=== PATIENT | male | born 1975 | race Two or more races ===

== ENCOUNTER 2018-07-30 12:13 | Outpatient (CLI) | payer SELFPAY | END 2018-07-30 23:59 | disposition home or self-care (01) | LOC: WOU 12:13 | PROVIDERS: ATTEND Surgery | DX: L89.213 Pressure ulcer of right hip, stage 3 (principal); G82.20 Paraplegia, unspecified; Z72.0 Tobacco use | CPT/HCPCS: 11042; A6402; Z7610 ==

== ENCOUNTER 2019-10-26 14:30 | Outpatient (CLI) | payer BC | END 2019-10-26 23:59 | disposition home or self-care (01) | LOC: WOU 14:30 | PROVIDERS: ATTEND Surgery | DX: L89.214 Pressure ulcer of right hip, stage 4 (principal); L89.224 Pressure ulcer of left hip, stage 4; F32.9 Major depressive disorder, single episode, unspecified; F41.9 Anxiety disorder, unspecified; K21.9 Gastro-esophageal reflux disease without esophagitis; G82.20 Paraplegia, unspecified; F17.200 Nicotine dependence, unspecified, uncomplicated; Z79.899 Other long term (current) drug therapy | CPT/HCPCS: 11043; A6407 ==

== ENCOUNTER 2019-10-29 12:30 | Outpatient (CLI) | payer BC | END 2019-10-29 23:59 | disposition home health service (06) | LOC: WOU 12:30 | PROVIDERS: ATTEND Surgery | DX: L89.214 Pressure ulcer of right hip, stage 4 (principal); L89.224 Pressure ulcer of left hip, stage 4; G82.20 Paraplegia, unspecified; F17.200 Nicotine dependence, unspecified, uncomplicated; N31.9 Neuromuscular dysfunction of bladder, unspecified; K21.9 Gastro-esophageal reflux disease without esophagitis | CPT/HCPCS: 11043; 87070-TC; 87075-TC ==

== ENCOUNTER 2019-11-01 08:40 | Outpatient (CLI) | payer BC | END 2019-11-01 23:59 | disposition home health service (06) | LOC: WOU 08:40 | PROVIDERS: ATTEND Surgery | DX: L89.214 Pressure ulcer of right hip, stage 4 (principal); L89.224 Pressure ulcer of left hip, stage 4; F17.200 Nicotine dependence, unspecified, uncomplicated; F41.9 Anxiety disorder, unspecified; F32.9 Major depressive disorder, single episode, unspecified; K21.9 Gastro-esophageal reflux disease without esophagitis; Z79.899 Other long term (current) drug therapy | CPT/HCPCS: 11043 ==

== ENCOUNTER 2019-11-08 09:50 | Outpatient (CLI) | payer BC ==
[2019-11-08 11:17] LABS: ALBUMIN 2.7 g/dL (3.4-5.0)
[2019-11-08 11:24] LABS: PREALBUMIN 18.3 MG/DL (18.0-35.7)
== END 2019-11-08 23:59 | disposition home health service (06) ==
LOC: WOU 09:50
PROVIDERS: ATTEND Surgery
DX: L89.214 Pressure ulcer of right hip, stage 4 (principal); L89.224 Pressure ulcer of left hip, stage 4; F41.9 Anxiety disorder, unspecified; F32.9 Major depressive disorder, single episode, unspecified; K21.9 Gastro-esophageal reflux disease without esophagitis; F17.200 Nicotine dependence, unspecified, uncomplicated; Z79.899 Other long term (current) drug therapy
CPT/HCPCS: 11043; 36415; 82040; 84134; A6407

== ENCOUNTER 2019-11-25 10:45 | Outpatient (CLI) | payer BC | END 2019-11-25 23:59 | disposition home health service (06) | LOC: WOU 10:45 | PROVIDERS: ATTEND Surgery | DX: L89.224 Pressure ulcer of left hip, stage 4 (principal); L89.214 Pressure ulcer of right hip, stage 4; F41.9 Anxiety disorder, unspecified; F32.9 Major depressive disorder, single episode, unspecified; K21.9 Gastro-esophageal reflux disease without esophagitis; F17.200 Nicotine dependence, unspecified, uncomplicated; G82.20 Paraplegia, unspecified; Z79.899 Other long term (current) drug therapy | CPT/HCPCS: 11043; A6407 ==

== ENCOUNTER 2019-12-09 10:00 | Outpatient (CLI) | payer BC | END 2019-12-09 23:59 | disposition home health service (06) | LOC: WOU 10:00 | PROVIDERS: ATTEND Surgery | DX: L89.224 Pressure ulcer of left hip, stage 4 (principal); L89.214 Pressure ulcer of right hip, stage 4; F17.200 Nicotine dependence, unspecified, uncomplicated; K21.9 Gastro-esophageal reflux disease without esophagitis; F32.9 Major depressive disorder, single episode, unspecified; F41.9 Anxiety disorder, unspecified; Z79.899 Other long term (current) drug therapy | CPT/HCPCS: 11043; A6407 ==

== ENCOUNTER 2019-12-30 12:30 | Outpatient (CLI) | payer BC | END 2019-12-30 23:59 | disposition home health service (06) | LOC: WOU 12:30 | PROVIDERS: ATTEND Surgery | DX: L89.224 Pressure ulcer of left hip, stage 4 (principal); L89.214 Pressure ulcer of right hip, stage 4; F17.200 Nicotine dependence, unspecified, uncomplicated; F32.9 Major depressive disorder, single episode, unspecified; F41.9 Anxiety disorder, unspecified; K21.9 Gastro-esophageal reflux disease without esophagitis; Z79.899 Other long term (current) drug therapy | CPT/HCPCS: 11043; A6407 ==

== ENCOUNTER 2020-01-06 13:30 | Outpatient (CLI) | payer BC | END 2020-01-06 23:59 | disposition home health service (06) | LOC: WOU 13:30 | PROVIDERS: ATTEND Surgery | DX: L89.224 Pressure ulcer of left hip, stage 4 (principal); L89.214 Pressure ulcer of right hip, stage 4; F17.200 Nicotine dependence, unspecified, uncomplicated; K21.9 Gastro-esophageal reflux disease without esophagitis; F41.9 Anxiety disorder, unspecified; F32.9 Major depressive disorder, single episode, unspecified | CPT/HCPCS: 11043; A6407 ==

== ENCOUNTER 2020-01-13 13:00 | Outpatient (CLI) | payer BC | END 2020-01-13 23:59 | disposition home health service (06) | LOC: WOU 13:00 | PROVIDERS: ATTEND Surgery | DX: L89.224 Pressure ulcer of left hip, stage 4 (principal); L89.214 Pressure ulcer of right hip, stage 4; F17.200 Nicotine dependence, unspecified, uncomplicated; F41.9 Anxiety disorder, unspecified; F32.9 Major depressive disorder, single episode, unspecified; Z79.899 Other long term (current) drug therapy | CPT/HCPCS: 11043; A6407 ==

== ENCOUNTER 2020-01-20 14:40 | Outpatient (CLI) | payer BC | END 2020-01-20 23:59 | disposition home health service (06) | LOC: WOU 14:40 | PROVIDERS: ATTEND Surgery | DX: L89.224 Pressure ulcer of left hip, stage 4 (principal); L89.214 Pressure ulcer of right hip, stage 4; F17.200 Nicotine dependence, unspecified, uncomplicated; F32.9 Major depressive disorder, single episode, unspecified; F41.9 Anxiety disorder, unspecified; K21.9 Gastro-esophageal reflux disease without esophagitis | CPT/HCPCS: 11043; 11046; J3490 ==

== ENCOUNTER 2020-01-24 11:05 | Outpatient (CLI) | payer BC | END 2020-01-24 23:59 | disposition home health service (06) | LOC: WOU 11:05 | PROVIDERS: ATTEND Surgery | DX: L89.224 Pressure ulcer of left hip, stage 4 (principal); L89.214 Pressure ulcer of right hip, stage 4; K21.9 Gastro-esophageal reflux disease without esophagitis; F32.9 Major depressive disorder, single episode, unspecified; F41.9 Anxiety disorder, unspecified; F17.200 Nicotine dependence, unspecified, uncomplicated | CPT/HCPCS: 11043 ==

== ENCOUNTER 2020-02-03 13:10 | Outpatient (CLI) | payer BC | END 2020-02-03 23:59 | disposition home health service (06) | LOC: WOU 13:10 | PROVIDERS: ATTEND Surgery | DX: L89.224 Pressure ulcer of left hip, stage 4 (principal); L89.214 Pressure ulcer of right hip, stage 4; F17.200 Nicotine dependence, unspecified, uncomplicated; F32.9 Major depressive disorder, single episode, unspecified; F41.9 Anxiety disorder, unspecified; K21.9 Gastro-esophageal reflux disease without esophagitis; G82.20 Paraplegia, unspecified | CPT/HCPCS: 11043; 97605-TC ==

== ENCOUNTER 2020-02-07 11:35 | Outpatient (CLI) | payer BC | END 2020-02-07 23:59 | disposition home health service (06) | LOC: WOU 11:35 | PROVIDERS: ATTEND Surgery | DX: L89.224 Pressure ulcer of left hip, stage 4 (principal); L89.214 Pressure ulcer of right hip, stage 4; F17.200 Nicotine dependence, unspecified, uncomplicated; F32.9 Major depressive disorder, single episode, unspecified; F41.9 Anxiety disorder, unspecified; K21.9 Gastro-esophageal reflux disease without esophagitis; Z79.899 Other long term (current) drug therapy | CPT/HCPCS: 11043; 97605-TC ==

== ENCOUNTER 2020-02-10 13:10 | Outpatient (CLI) | payer BC | END 2020-02-10 23:59 | disposition home health service (06) | LOC: WOU 13:10 | PROVIDERS: ATTEND Surgery | DX: L89.224 Pressure ulcer of left hip, stage 4 (principal); L89.214 Pressure ulcer of right hip, stage 4; F17.200 Nicotine dependence, unspecified, uncomplicated; F32.9 Major depressive disorder, single episode, unspecified; F41.9 Anxiety disorder, unspecified; K21.9 Gastro-esophageal reflux disease without esophagitis | CPT/HCPCS: 11043; 97605-TC ==

== ENCOUNTER 2020-02-14 11:30 | Outpatient (CLI) | payer BC | END 2020-02-14 23:59 | disposition home health service (06) | LOC: WOU 11:30 | PROVIDERS: ATTEND Surgery | DX: L89.224 Pressure ulcer of left hip, stage 4 (principal); L89.214 Pressure ulcer of right hip, stage 4; G82.20 Paraplegia, unspecified; F17.200 Nicotine dependence, unspecified, uncomplicated; F32.9 Major depressive disorder, single episode, unspecified; F41.9 Anxiety disorder, unspecified; K21.9 Gastro-esophageal reflux disease without esophagitis | CPT/HCPCS: 11043; 97605-TC ==

== ENCOUNTER 2020-02-17 13:30 | Outpatient (CLI) | payer BC | END 2020-02-17 23:59 | disposition home health service (06) | LOC: WOU 13:30 | PROVIDERS: ATTEND Surgery | DX: L89.224 Pressure ulcer of left hip, stage 4 (principal); L89.214 Pressure ulcer of right hip, stage 4; F17.200 Nicotine dependence, unspecified, uncomplicated; F32.9 Major depressive disorder, single episode, unspecified; F41.9 Anxiety disorder, unspecified; K21.9 Gastro-esophageal reflux disease without esophagitis | CPT/HCPCS: 11043; 97605-TC ==

== ENCOUNTER 2020-02-21 11:30 | Outpatient (CLI) | payer BC | END 2020-02-21 23:59 | disposition home health service (06) | LOC: WOU 11:30 | PROVIDERS: ATTEND Surgery | DX: L89.224 Pressure ulcer of left hip, stage 4 (principal); L89.214 Pressure ulcer of right hip, stage 4; F17.200 Nicotine dependence, unspecified, uncomplicated; F32.9 Major depressive disorder, single episode, unspecified; F41.9 Anxiety disorder, unspecified; K21.9 Gastro-esophageal reflux disease without esophagitis | CPT/HCPCS: 11043; 97605-TC ==

== ENCOUNTER 2020-02-24 13:30 | Outpatient (CLI) | payer BC | END 2020-02-24 23:59 | disposition home health service (06) | LOC: WOU 13:30 | PROVIDERS: ATTEND Surgery | DX: L89.224 Pressure ulcer of left hip, stage 4 (principal); L89.214 Pressure ulcer of right hip, stage 4; G82.20 Paraplegia, unspecified; F17.200 Nicotine dependence, unspecified, uncomplicated; F41.9 Anxiety disorder, unspecified; F32.9 Major depressive disorder, single episode, unspecified; K21.9 Gastro-esophageal reflux disease without esophagitis; R53.1 Weakness | CPT/HCPCS: 11043; 97605-TC ==

== ENCOUNTER 2020-02-28 11:30 | Outpatient (CLI) | payer BC | END 2020-02-28 23:59 | disposition home health service (06) | LOC: WOU 11:30 | PROVIDERS: ATTEND Surgery | DX: L89.224 Pressure ulcer of left hip, stage 4 (principal); L89.214 Pressure ulcer of right hip, stage 4; G82.20 Paraplegia, unspecified; F41.9 Anxiety disorder, unspecified; F32.9 Major depressive disorder, single episode, unspecified; K21.9 Gastro-esophageal reflux disease without esophagitis; F17.200 Nicotine dependence, unspecified, uncomplicated | CPT/HCPCS: 11043; 97605-TC ==

== ENCOUNTER 2020-03-02 13:09 | Outpatient (CLI) | payer BC | END 2020-03-02 23:59 | disposition home health service (06) | LOC: WOU 13:09 | PROVIDERS: ATTEND Surgery | DX: L89.224 Pressure ulcer of left hip, stage 4 (principal); L89.214 Pressure ulcer of right hip, stage 4; G82.20 Paraplegia, unspecified; F32.9 Major depressive disorder, single episode, unspecified; F41.9 Anxiety disorder, unspecified; F17.200 Nicotine dependence, unspecified, uncomplicated; K21.9 Gastro-esophageal reflux disease without esophagitis | CPT/HCPCS: 11043; 11046; 97605; A6253 ==

== ENCOUNTER → 2020-03-09 | Outpatient (CLI) | payer BC ==
[2020-03-09 14:49] LABS: BASOPHILS # (AUTO) 0.1 /CMM (0.0-0.2); BASOPHILS % (AUTO) 1.1 % (0.0-2.0); EOSINOPHILS % (AUTO) 2.3 % (0.0-6.0); HEMATOCRIT 42 % (39-51); HEMOGLOBIN 13.5 g/dL (13.5-17.5); LYMPHOCYTES # (AUTO) 2.6 /CMM (0.8-4.8); LYMPHOCYTES % (AUTO) 26.4 % (20.0-44.0); MEAN CORPUSCULAR HGB CONC 33 g/dl (31.0-36.0); MEAN CORPUSCULAR VOLUME 82 fL (80-96); MONOCYTES # (AUTO) 0.9 /CMM (0.1-1.30); MONOCYTES % (AUTO) 8.5 % (2.0-12.0); NEUTROPHILS # (AUTO) 6.2 /CMM (1.8-8.9); NEUTROPHILS % (AUTO) 61.7 % (43.0-81.0); PLATELET COUNT (AUTO) 522 /CMM (150-450); RED BLOOD CELL COUNT(AUTO) 5.04 MIL/uL (4.5-6.0)
[2020-03-09 16:30] LABS: PREALBUMIN 20.1 MG/DL (18.0-35.7)
[2020-03-09 16:33] LABS: ALBUMIN 2.8 g/dL (3.4-5.0); BILIRUBIN,TOTAL 0.3 mg/dL (0.2-1.0); CALCIUM, SERUM 9.4 mg/dL (8.5-10.1); CREATININE 0.9 mg/dL (0.6-1.3); POTASSIUM 4.3 mmol/L (3.5-5.1)
== END | disposition home health service (06) ==
LOC: WOU 13:45
PROVIDERS: ATTEND Surgery
DX: L89.224 Pressure ulcer of left hip, stage 4 (principal); L89.214 Pressure ulcer of right hip, stage 4; G82.20 Paraplegia, unspecified; F41.9 Anxiety disorder, unspecified; F32.9 Major depressive disorder, single episode, unspecified; F17.200 Nicotine dependence, unspecified, uncomplicated; K21.9 Gastro-esophageal reflux disease without esophagitis; R53.1 Weakness
CPT/HCPCS: 11043; 11046; 36415; 80053; 84134; 85025; 97605; A6253

== ENCOUNTER 2020-03-13 11:35 | Outpatient (CLI) | payer BC | END 2020-03-13 23:59 | disposition home health service (06) | LOC: WOU 11:35 | PROVIDERS: ATTEND Surgery | DX: L89.224 Pressure ulcer of left hip, stage 4 (principal); L89.214 Pressure ulcer of right hip, stage 4; F17.200 Nicotine dependence, unspecified, uncomplicated; F32.9 Major depressive disorder, single episode, unspecified; F41.9 Anxiety disorder, unspecified; K21.9 Gastro-esophageal reflux disease without esophagitis | CPT/HCPCS: 11043; 11046; A6407; J3301 ==

== ENCOUNTER 2020-03-16 09:30 | Outpatient (CLI) | payer BC ==
[2020-03-16] MEDS ORDERED: Z GUARD REMEDY 2 OZ OINT TP ONE (10:27)
== END 2020-03-16 23:59 | disposition home health service (06) ==
LOC: WOU 09:30
PROVIDERS: ATTEND Surgery
DX: L89.224 Pressure ulcer of left hip, stage 4 (principal); L89.214 Pressure ulcer of right hip, stage 4; F32.9 Major depressive disorder, single episode, unspecified; F41.9 Anxiety disorder, unspecified; K21.9 Gastro-esophageal reflux disease without esophagitis; F17.200 Nicotine dependence, unspecified, uncomplicated
CPT/HCPCS: 11043; 11046; A6407

== ENCOUNTER 2020-03-23 13:30 | Outpatient (CLI) | payer BC ==
[2020-03-23] MEDS ORDERED: Z GUARD REMEDY 2 OZ OINT TP ONE (14:01)
== END 2020-03-23 23:59 | disposition home health service (06) ==
LOC: WOU 13:30
PROVIDERS: ATTEND Surgery
DX: L89.224 Pressure ulcer of left hip, stage 4 (principal); L89.214 Pressure ulcer of right hip, stage 4; F32.9 Major depressive disorder, single episode, unspecified; F41.9 Anxiety disorder, unspecified; F17.200 Nicotine dependence, unspecified, uncomplicated; K21.9 Gastro-esophageal reflux disease without esophagitis
CPT/HCPCS: 11043; A6407

== ENCOUNTER 2020-03-27 11:30 | Outpatient (CLI) | payer BC | END 2020-03-27 23:59 | disposition home health service (06) | LOC: WOU 11:30 | PROVIDERS: ATTEND Surgery | DX: L89.224 Pressure ulcer of left hip, stage 4 (principal); L89.214 Pressure ulcer of right hip, stage 4; G82.20 Paraplegia, unspecified; F41.9 Anxiety disorder, unspecified; F32.9 Major depressive disorder, single episode, unspecified; K21.9 Gastro-esophageal reflux disease without esophagitis; F17.200 Nicotine dependence, unspecified, uncomplicated | CPT/HCPCS: 11042; 11043; 11046; 97605; A6253; 11045 ==

== ENCOUNTER 2020-03-30 13:30 | Outpatient (CLI) | payer BC | END 2020-03-30 23:59 | disposition home health service (06) | LOC: WOU 13:30 | PROVIDERS: ATTEND Surgery | DX: L89.224 Pressure ulcer of left hip, stage 4 (principal); L89.214 Pressure ulcer of right hip, stage 4; F17.200 Nicotine dependence, unspecified, uncomplicated; F32.9 Major depressive disorder, single episode, unspecified; F41.9 Anxiety disorder, unspecified; K21.9 Gastro-esophageal reflux disease without esophagitis | CPT/HCPCS: 11043 ==

== ENCOUNTER 2020-04-03 11:10 | Outpatient (CLI) | payer BC ==
[2020-04-03] MEDS ORDERED: Z GUARD REMEDY 2 OZ OINT TP ONE (12:34)
== END 2020-04-03 23:59 | disposition home health service (06) ==
LOC: WOU 11:10
PROVIDERS: ATTEND Surgery
DX: L89.224 Pressure ulcer of left hip, stage 4 (principal); L89.214 Pressure ulcer of right hip, stage 4; F32.9 Major depressive disorder, single episode, unspecified; F41.9 Anxiety disorder, unspecified; G82.20 Paraplegia, unspecified; F17.200 Nicotine dependence, unspecified, uncomplicated; K21.9 Gastro-esophageal reflux disease without esophagitis
CPT/HCPCS: 11043

== ENCOUNTER 2020-04-03 11:23 | Outpatient (CLI) | payer BC | END 2020-04-03 23:59 | disposition home or self-care (01) | LOC: MSC 11:23 | PROVIDERS: ATTEND Internal Medicine | DX: G82.20 Paraplegia, unspecified (principal); S71.002D Unspecified open wound, left hip, subsequent encounter; S71.001D Unspecified open wound, right hip, subsequent encounter; E88.09 Other disorders of plasma-protein metabolism, not elsewhere classified; E44.0 Moderate protein-calorie malnutrition; F12.90 Cannabis use, unspecified, uncomplicated; F17.200 Nicotine dependence, unspecified, uncomplicated; Z71.89 Other specified counseling ==

== ENCOUNTER 2020-04-06 13:15 | Outpatient (CLI) | payer BC ==
[2020-04-06] MEDS ORDERED: Z GUARD REMEDY 2 OZ OINT TP ONE (13:50)
== END 2020-04-06 23:59 | disposition home health service (06) ==
LOC: WOU 13:15
PROVIDERS: ATTEND Surgery
DX: L89.224 Pressure ulcer of left hip, stage 4 (principal); L89.214 Pressure ulcer of right hip, stage 4; F32.9 Major depressive disorder, single episode, unspecified; F41.9 Anxiety disorder, unspecified; K21.9 Gastro-esophageal reflux disease without esophagitis; F17.200 Nicotine dependence, unspecified, uncomplicated
CPT/HCPCS: 11043

== ENCOUNTER 2020-04-10 11:05 | Outpatient (CLI) | payer BC | END 2020-04-10 23:59 | disposition home health service (06) | LOC: WOU 11:05 | PROVIDERS: ATTEND Surgery | DX: L89.224 Pressure ulcer of left hip, stage 4 (principal); L89.214 Pressure ulcer of right hip, stage 4; F32.9 Major depressive disorder, single episode, unspecified; F41.9 Anxiety disorder, unspecified; K21.9 Gastro-esophageal reflux disease without esophagitis; F17.200 Nicotine dependence, unspecified, uncomplicated | CPT/HCPCS: 11043; A6253 ==

== ENCOUNTER 2020-04-20 13:00 | Outpatient (CLI) | payer BC ==
[2020-04-20] MEDS ORDERED: LIDOCAINE SOLN 4% 50 ML BOTTLE ONE (13:22)
== END 2020-04-20 23:59 | disposition home health service (06) ==
LOC: WOU 13:00
PROVIDERS: ATTEND Surgery
DX: L89.224 Pressure ulcer of left hip, stage 4 (principal); L89.214 Pressure ulcer of right hip, stage 4; F41.9 Anxiety disorder, unspecified; F32.9 Major depressive disorder, single episode, unspecified; F17.200 Nicotine dependence, unspecified, uncomplicated; K21.9 Gastro-esophageal reflux disease without esophagitis
CPT/HCPCS: 11043; 11046; 97605; A6253

== ENCOUNTER 2020-04-24 11:00 | Outpatient (CLI) | payer BC ==
[2020-04-24] MEDS ORDERED: LIDOCAINE SOLN 4% 50 ML BOTTLE ONE (11:15)
== END 2020-04-24 23:59 | disposition home health service (06) ==
LOC: WOU 11:00
PROVIDERS: ATTEND Surgery
DX: L89.224 Pressure ulcer of left hip, stage 4 (principal); L89.214 Pressure ulcer of right hip, stage 4; F32.9 Major depressive disorder, single episode, unspecified; F41.9 Anxiety disorder, unspecified; K21.9 Gastro-esophageal reflux disease without esophagitis; F17.200 Nicotine dependence, unspecified, uncomplicated
CPT/HCPCS: 11043

== ENCOUNTER 2020-04-27 13:15 | Outpatient (CLI) | payer BC ==
[~2020-04-27 13:15] MED LIST: LIDOCAINE SOLN 4% 50 ML BOTTLE ONE
== END 2020-04-27 23:59 | disposition home health service (06) ==
LOC: WOU 13:15
PROVIDERS: ATTEND Surgery
DX: L89.224 Pressure ulcer of left hip, stage 4 (principal); L89.214 Pressure ulcer of right hip, stage 4; F17.200 Nicotine dependence, unspecified, uncomplicated; F41.9 Anxiety disorder, unspecified; F32.9 Major depressive disorder, single episode, unspecified; K21.9 Gastro-esophageal reflux disease without esophagitis
CPT/HCPCS: 11043

== ENCOUNTER 2020-05-01 11:15 | Outpatient (CLI) | payer BC ==
[2020-05-01] MEDS ORDERED: LIDOCAINE SOLN 4% 50 ML BOTTLE ONE (11:28)
== END 2020-05-01 23:59 | disposition home health service (06) ==
LOC: WOU 11:15
PROVIDERS: ATTEND Surgery
DX: L89.224 Pressure ulcer of left hip, stage 4 (principal); L89.214 Pressure ulcer of right hip, stage 4; F17.200 Nicotine dependence, unspecified, uncomplicated; F32.9 Major depressive disorder, single episode, unspecified; F41.9 Anxiety disorder, unspecified; K21.9 Gastro-esophageal reflux disease without esophagitis
CPT/HCPCS: 11043; G0463

== ENCOUNTER 2020-05-04 14:00 | Outpatient (CLI) | payer BC ==
[2020-05-04] MEDS ORDERED: LIDOCAINE SOLN 4% 50 ML BOTTLE ONE (14:16)
== END 2020-05-04 23:59 | disposition home health service (06) ==
LOC: WOU 14:00
PROVIDERS: ATTEND Surgery
DX: L89.224 Pressure ulcer of left hip, stage 4 (principal); L89.214 Pressure ulcer of right hip, stage 4; F41.9 Anxiety disorder, unspecified; F32.9 Major depressive disorder, single episode, unspecified; K21.9 Gastro-esophageal reflux disease without esophagitis; F17.200 Nicotine dependence, unspecified, uncomplicated
CPT/HCPCS: 11043

== ENCOUNTER 2020-05-15 12:15 | Outpatient (CLI) | payer BC ==
[2020-05-15] MEDS ORDERED: LIDOCAINE SOLN 4% 50 ML BOTTLE ONE (12:21)
== END 2020-05-15 23:59 | disposition home health service (06) ==
LOC: WOU 12:15
PROVIDERS: ATTEND Surgery
DX: L89.224 Pressure ulcer of left hip, stage 4 (principal); L89.214 Pressure ulcer of right hip, stage 4; F32.9 Major depressive disorder, single episode, unspecified; F41.9 Anxiety disorder, unspecified; K21.9 Gastro-esophageal reflux disease without esophagitis; F17.200 Nicotine dependence, unspecified, uncomplicated
CPT/HCPCS: 11043

== ENCOUNTER 2020-05-22 11:00 | Outpatient (CLI) | payer BC ==
[2020-05-22] MEDS ORDERED: LIDOCAINE SOLN 4% 50 ML BOTTLE ONE (11:27)
== END 2020-05-22 23:59 | disposition home health service (06) ==
LOC: WOU 11:00
PROVIDERS: ATTEND Surgery
DX: L89.224 Pressure ulcer of left hip, stage 4 (principal); L89.214 Pressure ulcer of right hip, stage 4; F17.200 Nicotine dependence, unspecified, uncomplicated; G82.20 Paraplegia, unspecified; F32.9 Major depressive disorder, single episode, unspecified; F41.9 Anxiety disorder, unspecified; K21.9 Gastro-esophageal reflux disease without esophagitis
CPT/HCPCS: 11043; 97605-TC

== ENCOUNTER 2020-05-25 14:00 | Outpatient (CLI) | payer BC | END 2020-05-25 23:59 | disposition home health service (06) | LOC: WOU 14:00 | PROVIDERS: ATTEND Surgery | DX: L89.224 Pressure ulcer of left hip, stage 4 (principal); L89.214 Pressure ulcer of right hip, stage 4; F17.200 Nicotine dependence, unspecified, uncomplicated; F41.9 Anxiety disorder, unspecified; F32.9 Major depressive disorder, single episode, unspecified; K21.9 Gastro-esophageal reflux disease without esophagitis | CPT/HCPCS: 11043 ==

== ENCOUNTER 2020-05-29 11:15 | Outpatient (CLI) | payer BC | END 2020-05-29 23:59 | disposition home health service (06) | LOC: WOU 11:15 | PROVIDERS: ATTEND Surgery | DX: L89.224 Pressure ulcer of left hip, stage 4 (principal); L89.214 Pressure ulcer of right hip, stage 4; F17.200 Nicotine dependence, unspecified, uncomplicated; F32.9 Major depressive disorder, single episode, unspecified; F41.9 Anxiety disorder, unspecified; K21.9 Gastro-esophageal reflux disease without esophagitis | CPT/HCPCS: 11043; 97605-TC ==

== ENCOUNTER → 2020-05-30 | Outpatient (CLI) | payer BC | END | disposition home or self-care (01) | LOC: MSC 09:30 | PROVIDERS: ATTEND Anesthesiology | DX: M62.838 Other muscle spasm (principal); G95.89 Other specified diseases of spinal cord; T14.90XS Injury, unspecified, sequela; Z99.3 Dependence on wheelchair; F41.8 Other specified anxiety disorders; K59.00 Constipation, unspecified ==

== ENCOUNTER 2020-06-01 13:30 | Outpatient (CLI) | payer BC ==
[~2020-06-01 13:30] MED LIST changes: +HYDROCORTISONE 1% CREAM 28.35 GM TUBE TP ONE; -LIDOCAINE SOLN 4% 50 ML BOTTLE ONE
== END 2020-06-01 23:59 | disposition home health service (06) ==
LOC: WOU 13:30
PROVIDERS: ATTEND Surgery
DX: L89.224 Pressure ulcer of left hip, stage 4 (principal); L89.214 Pressure ulcer of right hip, stage 4; F17.200 Nicotine dependence, unspecified, uncomplicated; F32.9 Major depressive disorder, single episode, unspecified; F41.9 Anxiety disorder, unspecified; K21.9 Gastro-esophageal reflux disease without esophagitis
CPT/HCPCS: 11043; 97605-TC

== ENCOUNTER 2020-06-05 11:40 | Outpatient (CLI) | payer BC ==
[2020-06-05] MEDS ORDERED: LIDOCAINE SOLN 4% 50 ML BOTTLE ONE (11:56)
== END 2020-06-05 23:59 | disposition home health service (06) ==
LOC: WOU 11:40
PROVIDERS: ATTEND Surgery
DX: L89.224 Pressure ulcer of left hip, stage 4 (principal); L89.214 Pressure ulcer of right hip, stage 4; F41.9 Anxiety disorder, unspecified; F32.9 Major depressive disorder, single episode, unspecified; K21.9 Gastro-esophageal reflux disease without esophagitis; F17.200 Nicotine dependence, unspecified, uncomplicated
CPT/HCPCS: 11043; 97605-TC

== ENCOUNTER → 2020-06-06 | Outpatient (CLI) | payer BC | END | disposition home or self-care (01) | LOC: MSC 11:05 | PROVIDERS: ATTEND Anesthesiology | DX: M62.838 Other muscle spasm (principal); G95.89 Other specified diseases of spinal cord; T14.90XS Injury, unspecified, sequela; L89.90 Pressure ulcer of unspecified site, unspecified stage; K59.00 Constipation, unspecified; F41.8 Other specified anxiety disorders ==

== ENCOUNTER 2020-06-08 13:15 | Outpatient (CLI) | payer BC ==
[2020-06-08] MEDS ORDERED: LIDOCAINE SOLN 4% 50 ML BOTTLE ONE (13:40)
== END 2020-06-08 23:59 | disposition home health service (06) ==
LOC: WOU 13:15
PROVIDERS: ATTEND Surgery
DX: L89.224 Pressure ulcer of left hip, stage 4 (principal); L89.214 Pressure ulcer of right hip, stage 4; F32.9 Major depressive disorder, single episode, unspecified; F41.9 Anxiety disorder, unspecified; K21.9 Gastro-esophageal reflux disease without esophagitis; F17.200 Nicotine dependence, unspecified, uncomplicated
CPT/HCPCS: 11043; 97605-TC

== ENCOUNTER 2020-06-12 11:00 | Outpatient (CLI) | payer BC ==
[2020-06-12] MEDS ORDERED: Z GUARD REMEDY 2 OZ OINT TP ONE (11:58)
== END 2020-06-12 23:59 | disposition home health service (06) ==
LOC: WOU 11:00
PROVIDERS: ATTEND Surgery
DX: L89.224 Pressure ulcer of left hip, stage 4 (principal); L89.214 Pressure ulcer of right hip, stage 4; F32.9 Major depressive disorder, single episode, unspecified; F41.9 Anxiety disorder, unspecified; K21.9 Gastro-esophageal reflux disease without esophagitis; F17.200 Nicotine dependence, unspecified, uncomplicated
CPT/HCPCS: 11043; 97605-TC

== ENCOUNTER 2020-06-15 13:25 | Outpatient (CLI) | payer BC ==
[2020-06-15] MEDS ORDERED: LIDOCAINE SOLN 4% 50 ML BOTTLE ONE (13:31)
[2020-06-15] MEDS ORDERED: Z GUARD REMEDY 2 OZ OINT TP ONE (13:48)
== END 2020-06-15 23:59 | disposition home health service (06) ==
LOC: WOU 13:25
PROVIDERS: ATTEND Surgery
DX: L89.224 Pressure ulcer of left hip, stage 4 (principal); L89.214 Pressure ulcer of right hip, stage 4; F41.9 Anxiety disorder, unspecified; F32.9 Major depressive disorder, single episode, unspecified; F17.200 Nicotine dependence, unspecified, uncomplicated; K21.9 Gastro-esophageal reflux disease without esophagitis
CPT/HCPCS: 11043; 97605-TC

== ENCOUNTER 2020-06-19 11:10 | Outpatient (CLI) | payer BC | END 2020-06-19 23:59 | disposition home health service (06) | LOC: WOU 11:10 | PROVIDERS: ATTEND Surgery | DX: L89.224 Pressure ulcer of left hip, stage 4 (principal); L89.214 Pressure ulcer of right hip, stage 4; F41.9 Anxiety disorder, unspecified; F32.9 Major depressive disorder, single episode, unspecified; K21.9 Gastro-esophageal reflux disease without esophagitis; F17.200 Nicotine dependence, unspecified, uncomplicated | CPT/HCPCS: 11043 ==

== ENCOUNTER 2020-06-26 11:30 | Outpatient (CLI) | payer BC ==
[2020-06-26] MEDS ORDERED: LIDOCAINE SOLN 4% 50 ML BOTTLE ONE (11:56)
[2020-06-26] MEDS ORDERED: Z GUARD REMEDY 2 OZ OINT TP ONE (11:59)
== END 2020-06-26 23:59 | disposition home health service (06) ==
LOC: WOU 11:30
PROVIDERS: ATTEND Surgery
DX: L89.224 Pressure ulcer of left hip, stage 4 (principal); L89.214 Pressure ulcer of right hip, stage 4; F41.9 Anxiety disorder, unspecified; F32.9 Major depressive disorder, single episode, unspecified; K21.9 Gastro-esophageal reflux disease without esophagitis; F17.200 Nicotine dependence, unspecified, uncomplicated
CPT/HCPCS: 11043

== ENCOUNTER 2020-06-29 14:00 | Outpatient (CLI) | payer BC ==
[2020-06-29] MEDS ORDERED: LIDOCAINE SOLN 4% 50 ML BOTTLE ONE (14:10)
[2020-06-29] MEDS ORDERED: Z GUARD REMEDY 2 OZ OINT TP ONE (14:26)
== END 2020-06-29 23:59 | disposition home health service (06) ==
LOC: WOU 14:00
PROVIDERS: ATTEND Surgery
DX: L89.224 Pressure ulcer of left hip, stage 4 (principal); L89.214 Pressure ulcer of right hip, stage 4; F32.9 Major depressive disorder, single episode, unspecified; F41.9 Anxiety disorder, unspecified; K21.9 Gastro-esophageal reflux disease without esophagitis; F17.200 Nicotine dependence, unspecified, uncomplicated
CPT/HCPCS: 11043

== ENCOUNTER 2020-07-03 11:10 | Outpatient (CLI) | payer BC ==
[2020-07-03] MEDS ORDERED: Z GUARD REMEDY 2 OZ OINT TP ONE (11:40)
== END 2020-07-03 23:59 | disposition home health service (06) ==
LOC: WOU 11:10
PROVIDERS: ATTEND Surgery
DX: L89.214 Pressure ulcer of right hip, stage 4 (principal); F32.9 Major depressive disorder, single episode, unspecified; F41.9 Anxiety disorder, unspecified; K21.9 Gastro-esophageal reflux disease without esophagitis; F17.200 Nicotine dependence, unspecified, uncomplicated
CPT/HCPCS: 11043

== ENCOUNTER 2020-07-13 14:00 | Outpatient (CLI) | payer BC | END 2020-07-13 23:59 | disposition home health service (06) | LOC: WOU 14:00 | PROVIDERS: ATTEND Surgery | DX: L89.224 Pressure ulcer of left hip, stage 4 (principal); L89.214 Pressure ulcer of right hip, stage 4; F32.9 Major depressive disorder, single episode, unspecified; F41.9 Anxiety disorder, unspecified; F17.200 Nicotine dependence, unspecified, uncomplicated; K21.9 Gastro-esophageal reflux disease without esophagitis | CPT/HCPCS: 11043 ==

== ENCOUNTER 2020-07-17 11:45 | Outpatient (CLI) | payer BC | END 2020-07-17 23:59 | disposition home health service (06) | LOC: WOU 11:45 | PROVIDERS: ATTEND Surgery | DX: L89.224 Pressure ulcer of left hip, stage 4 (principal); L89.214 Pressure ulcer of right hip, stage 4; F32.9 Major depressive disorder, single episode, unspecified; F41.9 Anxiety disorder, unspecified; K21.9 Gastro-esophageal reflux disease without esophagitis; F17.200 Nicotine dependence, unspecified, uncomplicated | CPT/HCPCS: 11043 ==

== ENCOUNTER → 2020-07-20 | Outpatient (CLI) | payer BC | END | disposition home health service (06) | LOC: WOU 14:15 | PROVIDERS: ATTEND Surgery | DX: L89.224 Pressure ulcer of left hip, stage 4 (principal); L89.214 Pressure ulcer of right hip, stage 4; F17.200 Nicotine dependence, unspecified, uncomplicated; F32.9 Major depressive disorder, single episode, unspecified; F41.9 Anxiety disorder, unspecified; K21.9 Gastro-esophageal reflux disease without esophagitis | CPT/HCPCS: G0463 ==

== ENCOUNTER 2020-07-27 14:35 | Outpatient (CLI) | payer BC ==
[2020-07-27] MEDS ORDERED: SILVER SULFADIAZINE CREAM 25 GM TUBE ONE (15:34)
[2020-07-27] MEDS ORDERED: Z GUARD REMEDY 2 OZ OINT TP ONE (15:34)
== END 2020-07-27 23:59 | disposition home health service (06) ==
LOC: WOU 14:35
PROVIDERS: ATTEND Surgery
DX: L89.224 Pressure ulcer of left hip, stage 4 (principal); L89.214 Pressure ulcer of right hip, stage 4; S90.822A Blister (nonthermal), left foot, initial encounter; S90.821A Blister (nonthermal), right foot, initial encounter; X58.XXXA Exposure to other specified factors, initial encounter; Y92.89 Other specified places as the place of occurrence of the external cause; F17.200 Nicotine dependence, unspecified, uncomplicated; F32.9 Major depressive disorder, single episode, unspecified; F41.9 Anxiety disorder, unspecified; K21.9 Gastro-esophageal reflux disease without esophagitis
CPT/HCPCS: 11043; 11044; 97605-TC

== ENCOUNTER 2020-07-31 11:15 | Outpatient (CLI) | payer BC | END 2020-07-31 23:59 | disposition home health service (06) | LOC: WOU 11:15 | PROVIDERS: ATTEND Surgery | DX: L89.224 Pressure ulcer of left hip, stage 4 (principal); L89.214 Pressure ulcer of right hip, stage 4; L89.623 Pressure ulcer of left heel, stage 3; L89.613 Pressure ulcer of right heel, stage 3; F32.9 Major depressive disorder, single episode, unspecified; F41.9 Anxiety disorder, unspecified; F17.200 Nicotine dependence, unspecified, uncomplicated; K21.9 Gastro-esophageal reflux disease without esophagitis | CPT/HCPCS: 11042; 11043; 97605-TC ==

== ENCOUNTER 2020-08-07 12:00 | Outpatient (CLI) | payer BC ==
[2020-08-07] MEDS ORDERED: SILVER SULFADIAZINE CREAM 25 GM TUBE ONE (12:44)
[2020-08-07] MEDS ORDERED: Z GUARD REMEDY 2 OZ OINT TP ONE (12:44)
[2020-08-07] MEDS ORDERED: COLLAGENASE 5 GM TUBE UD TP ONE (12:45)
== END 2020-08-07 23:59 | disposition home health service (06) ==
LOC: WOU 12:00
PROVIDERS: ATTEND Surgery
DX: L89.224 Pressure ulcer of left hip, stage 4 (principal); L89.214 Pressure ulcer of right hip, stage 4; L89.623 Pressure ulcer of left heel, stage 3; L89.613 Pressure ulcer of right heel, stage 3; F32.9 Major depressive disorder, single episode, unspecified; F41.9 Anxiety disorder, unspecified; F17.200 Nicotine dependence, unspecified, uncomplicated; K21.9 Gastro-esophageal reflux disease without esophagitis
CPT/HCPCS: 11042; 11043

== ENCOUNTER 2020-08-14 11:30 | Outpatient (CLI) | payer BC ==
[2020-08-14] MEDS ORDERED: SILVER SULFADIAZINE CREAM 25 GM TUBE ONE (12:07)
[2020-08-14] MEDS ORDERED: COLLAGENASE 5 GM TUBE UD TP ONE (12:14)
== END 2020-08-14 23:59 | disposition home health service (06) ==
LOC: WOU 11:30
PROVIDERS: ATTEND Surgery
DX: L89.224 Pressure ulcer of left hip, stage 4 (principal); L89.214 Pressure ulcer of right hip, stage 4; L89.623 Pressure ulcer of left heel, stage 3; L89.613 Pressure ulcer of right heel, stage 3; F32.9 Major depressive disorder, single episode, unspecified; F41.9 Anxiety disorder, unspecified; F17.200 Nicotine dependence, unspecified, uncomplicated; K21.9 Gastro-esophageal reflux disease without esophagitis
CPT/HCPCS: 11042; 11043

== ENCOUNTER → 2020-08-21 | Outpatient (CLI) | payer BC ==
[~2020-08-21] MED LIST changes: +COLLAGENASE 5 GM TUBE UD TP ONE; -HYDROCORTISONE 1% CREAM 28.35 GM TUBE TP ONE; +SILVER SULFADIAZINE CREAM 25 GM TUBE ONE
== END | disposition home health service (06) ==
LOC: WOU 11:00
PROVIDERS: ATTEND Surgery
DX: L89.224 Pressure ulcer of left hip, stage 4 (principal); L89.214 Pressure ulcer of right hip, stage 4; L89.623 Pressure ulcer of left heel, stage 3; L89.613 Pressure ulcer of right heel, stage 3; F17.200 Nicotine dependence, unspecified, uncomplicated; F32.9 Major depressive disorder, single episode, unspecified; F41.9 Anxiety disorder, unspecified; G82.20 Paraplegia, unspecified; K21.9 Gastro-esophageal reflux disease without esophagitis
CPT/HCPCS: 11042; 11043

== ENCOUNTER 2020-08-23 11:10 | Outpatient (CLI) | payer BC ==
[2020-08-23 12:30] LABS: CHOLESTEROL 180 mg/dL (<200); HDL CHOLESTEROL 44 mg/dL (40-60); LDL 119 mg/dL (0-99); TRIGLYCERIDES 95 mg/dL (30-150)
== END 2020-08-23 23:59 | disposition home or self-care (01) ==
LOC: WOU 11:10 → VASLAB 23:59
PROVIDERS: ATTEND Internal Medicine
DX: L89.629 Pressure ulcer of left heel, unspecified stage (principal); L89.619 Pressure ulcer of right heel, unspecified stage; I73.9 Peripheral vascular disease, unspecified; I87.2 Venous insufficiency (chronic) (peripheral); F17.200 Nicotine dependence, unspecified, uncomplicated; G82.20 Paraplegia, unspecified; T14.8XXS Other injury of unspecified body region, sequela
CPT/HCPCS: 36415; 80061-TC; G0463

== ENCOUNTER 2020-09-04 11:00 | Outpatient (CLI) | payer BC ==
[2020-09-04] MEDS ORDERED: COLLAGENASE 5 GM TUBE UD TP ONE (12:03)
[2020-09-04] MEDS ORDERED: CADEXOMER IODINE UD 5 GM TUBE ONE (12:10)
== END 2020-09-04 23:59 | disposition home health service (06) ==
LOC: WOU 11:00
PROVIDERS: ATTEND Surgery
DX: L89.224 Pressure ulcer of left hip, stage 4 (principal); L89.214 Pressure ulcer of right hip, stage 4; L89.623 Pressure ulcer of left heel, stage 3; L89.613 Pressure ulcer of right heel, stage 3; F32.9 Major depressive disorder, single episode, unspecified; F41.9 Anxiety disorder, unspecified; K21.9 Gastro-esophageal reflux disease without esophagitis; F17.200 Nicotine dependence, unspecified, uncomplicated
CPT/HCPCS: 11042; 11043

== ENCOUNTER 2020-09-07 14:00 | Outpatient (CLI) | payer BC ==
[2020-09-07] MEDS ORDERED: COLLAGENASE 5 GM TUBE UD TP ONE (14:43)
== END 2020-09-07 23:59 | disposition home health service (06) ==
LOC: WOU 14:00
PROVIDERS: ATTEND Surgery
DX: L89.224 Pressure ulcer of left hip, stage 4 (principal); L89.214 Pressure ulcer of right hip, stage 4; L89.623 Pressure ulcer of left heel, stage 3; L89.613 Pressure ulcer of right heel, stage 3; F32.9 Major depressive disorder, single episode, unspecified; F41.9 Anxiety disorder, unspecified; F17.200 Nicotine dependence, unspecified, uncomplicated; K21.9 Gastro-esophageal reflux disease without esophagitis
CPT/HCPCS: 11042; 11043

== ENCOUNTER 2020-09-11 11:15 | Outpatient (CLI) | payer BC ==
[2020-09-11] MEDS ORDERED: LIDOCAINE SOLN 4% 50 ML BOTTLE ONE (11:32)
[2020-09-11] MEDS ORDERED: COLLAGENASE 5 GM TUBE UD TP ONE (12:35)
== END 2020-09-11 23:59 | disposition home health service (06) ==
LOC: WOU 11:15
PROVIDERS: ATTEND Surgery
DX: L89.224 Pressure ulcer of left hip, stage 4 (principal); L89.214 Pressure ulcer of right hip, stage 4; L89.623 Pressure ulcer of left heel, stage 3; L89.613 Pressure ulcer of right heel, stage 3; F17.200 Nicotine dependence, unspecified, uncomplicated; K21.9 Gastro-esophageal reflux disease without esophagitis; F32.9 Major depressive disorder, single episode, unspecified; F41.9 Anxiety disorder, unspecified
CPT/HCPCS: 11042; 11043

== ENCOUNTER 2020-09-14 14:30 | Outpatient (CLI) | payer BC ==
[2020-09-14] MEDS ORDERED: Z GUARD REMEDY 2 OZ OINT TP ONE (14:32)
== END 2020-09-14 23:59 | disposition home health service (06) ==
LOC: WOU 14:30
PROVIDERS: ATTEND Surgery
DX: L89.224 Pressure ulcer of left hip, stage 4 (principal); L89.214 Pressure ulcer of right hip, stage 4; L89.624 Pressure ulcer of left heel, stage 4; L89.614 Pressure ulcer of right heel, stage 4; F17.200 Nicotine dependence, unspecified, uncomplicated; F32.9 Major depressive disorder, single episode, unspecified; F41.9 Anxiety disorder, unspecified; K21.9 Gastro-esophageal reflux disease without esophagitis
CPT/HCPCS: 11043

== ENCOUNTER 2020-09-14 15:00 | Outpatient (CLI) | payer BC ==
[2020-09-14 16:06] LABS: BILIRUBIN,URINE NEGATIVE (NEGATIVE); COLOR,URINE YELLOW (YELLOW); LEUKOCYTE ESTERASE ,URINE SMALL (NEGATIVE); NITRITE, URINE NEGATIVE (NEGATIVE); PH,URINE 6.5 (5.0-8.0); PROTEIN,URINE TRACE mg/dl (NEGATIVE); UGLUCOSE NEGATIVE (NEGATIVE); UROBILINOGEN,URINE 0.2 EU/dL (0.2)
[2020-09-14 16:20] LABS: BACTERIA,URINE 1+ /HPF (None Seen); RBC,URINE 0-2 /HPF (0-2); SQUAMOUS EPITHELIAL CELL,UR 0-2 /HPF (None Seen)
== END 2020-09-14 23:59 | disposition home or self-care (01) ==
LOC: LAB 15:00
PROVIDERS: ATTEND Internal Medicine
DX: N39.0 Urinary tract infection, site not specified (principal)
CPT/HCPCS: 81001; 87086-TC

== ENCOUNTER 2020-09-21 15:13 | Outpatient (CLI) | payer BC | END 2020-09-21 23:59 | disposition home health service (06) | LOC: WOU 15:13 | PROVIDERS: ATTEND Surgery | DX: L89.224 Pressure ulcer of left hip, stage 4 (principal); L89.214 Pressure ulcer of right hip, stage 4; L89.623 Pressure ulcer of left heel, stage 3; L89.613 Pressure ulcer of right heel, stage 3; F17.200 Nicotine dependence, unspecified, uncomplicated; F32.9 Major depressive disorder, single episode, unspecified; F41.9 Anxiety disorder, unspecified; K21.9 Gastro-esophageal reflux disease without esophagitis | CPT/HCPCS: 11043 ==

== ENCOUNTER 2020-09-25 07:25 | Inpatient (IN) | payer BC ==
[~2020-09-25] VITALS: Ht 198.1 cm; Wt 93.9 kg
[2020-09-25 08:11] VITALS: BP 102/63
[2020-09-25] MEDS ORDERED: IODIXANOL 300 ML IV ONE (08:22)
[2020-09-25] MEDS ORDERED: LIDOCAINE HCL/PF 1% 30 ML SDV ONE (08:23)
[2020-09-25] MEDS ORDERED: IV NS 0.9% 1,000 ML ONE (08:40)
[2020-09-25] MEDS ORDERED: MIDAZOLAM HCL 2 MG/2ML VIAL ONE ×2 (08:44→10:26)
[2020-09-25] MEDS ORDERED: FENTANYL PF 100MCG/2ML AMPUL ONE (08:44)
[2020-09-25] MEDS ORDERED: HEPARIN SODIUM, PORCINE 1,000 UNIT/ML VIAL ONE ×2 (08:45→09:54)
[2020-09-25 08:57] LABS: BASOPHILS # (AUTO) 0.1 /CMM (0.0-0.2); BASOPHILS % (AUTO) 1.1 % (0.0-2.0); HEMATOCRIT 41 % (39-51); HEMOGLOBIN 13.3 g/dL (13.5-17.5); LYMPHOCYTES # (AUTO) 1.9 /CMM (0.8-4.8); LYMPHOCYTES % (AUTO) 23.4 % (20.0-44.0); MEAN CORPUSCULAR HGB CONC 33 g/dl (31.0-36.0); MEAN CORPUSCULAR VOLUME 84 fL (80-96); MONOCYTES % (AUTO) 12.5 % (2.0-12.0); PLATELET COUNT (AUTO) 409 /CMM (150-450); RED BLOOD CELL COUNT(AUTO) 4.82 MIL/uL (4.5-6.0); WHITE BLOOD COUNT (AUTO) 8.3 K/uL (4.3-11.0)
[2020-09-25 09:05] LABS: CALCIUM, SERUM 9.6 mg/dL (8.5-10.1); CREATININE 0.9 mg/dL (0.6-1.3); POTASSIUM 4.3 mmol/L (3.5-5.1)
[2020-09-25 09:10] LABS: ALBUMIN 2.9 g/dL (3.4-5.0); BILIRUBIN,TOTAL 0.3 mg/dL (0.2-1.0); TOTAL PROTEIN, SERUM 7.4 g/dL (6.4-8.2)
[2020-09-25] MEDS ORDERED: IODIXANOL 320MG/ML 100 ML IV ONE ×2 (09:59→10:37)
[2020-09-25] MEDS ORDERED: NITROGLYCERIN ICAR 1,000 MCG/10 ML VIAL ICAR ONE ×2 (10:00→10:30)
[2020-09-25] MEDS ORDERED: IODIXANOL 320MG/ML 50 ML IV ONE (10:03)
[2020-09-25] MEDS ORDERED: diphenhydrAMINE HCL 50 MG/ML VIAL ONE (10:42)
[2020-09-25] MEDS ORDERED: HEPARIN SODIUM, PORCINE 5000 UNITS/1 ML VIAL ONE (10:55)
--- NOTE | 2020-09-25 11:55 | NUR ---
RN NOTE RECEIVED THE PATIENT IN BED. PATIENT IS ALERT AND ORIENTED X4. DENIES PAIN. IN ROOM AIR AND DENIES SOB. RESPIRATION REGULAR AND UNLABORED. TR BAND IN LEFT WRIST WITH 14 CC OF AIR PER REPORT. BED LOW AND LOCKED. SIDE RAILS UP X3. CALL LIGHT WITHIN REACH. WILL CONTINUE TO MONITOR.
[2020-09-25] MEDS ORDERED: METH-647 PO (11:57)
[2020-09-25] MEDS ORDERED: TIZA4TAB11 PO (11:57)
[2020-09-25] MEDS ORDERED: BACL20TA PO (11:57)
--- NOTE | 2020-09-25 13:27 | NUR ---
TELE/RN NOTE REGULAR DIET ORDERED BY RODRIGO RAMIREZ NOTED AND CARRIED OUT.
[2020-09-25] MEDS ORDERED: HEPARIN INFUSION/D5W 500 ML IV PRN (13:30)
--- NOTE | 2020-09-25 13:31 | NUR ---
TELE/RN NOTE STILL WAITING FOR HEPARIN DELIVERY BY PHARMACY
--- NOTE | 2020-09-25 13:39 | NUR ---
MS/RN NOTE MADE DR BERTRAND AWARE THAT THERE ARE 4 CC AIR REMAINING IN THE BAND AND THAT THE PHARMACY STILL HAS NOT DELIVERED HEPARIN. WAITING FOR MD TO OK FOR ALL TO BE REMOVED.
[2020-09-25] MEDS: HEPARIN INFUSION/D5W 500 ML IV PRN (14:19)
--- NOTE | 2020-09-25 14:20 | NUR ---
RN NOTE RECEIVED CALL FROM DR BERTRAND AND PER MD TO REMOVE REMAINING 4 CC OF AIR WITHIN 2 MIN. REMOVED 4 CC AIR TOLD BY MD WHILE MD ON THE PHONE. AFTER REMOVING THE AIR, INFORMED MD THAT NO BLEEDING IS NOTED AND HEPARIN IS INFUSING. NO FURTHER ORDERS FROM MD.
--- NOTE | 2020-09-25 15:06 | NUR ---
RN NOTE HEPARIN STARTED AT 1419.
--- NOTE | 2020-09-25 15:23 | NUR ---
TELE/RN NOTE HEPARIN INFUSING PER ORDER. NO S/S BLEEDING NOTE. BLE AND BUE PULSES PRESENT WHEN CHECKED BY A DOPPLER.
--- NOTE | 2020-09-25 15:28 | NUR ---
RN NOTE IN AND OUT CATH DONE AND 400 CC OF CLEAR, YELLOW COLOR URINE IS DRAINED. NO BLADDER DISTENSION NOTED. WILL CONTINUE TO MONITOR.
[2020-09-25 16:00] VITALS: BP 141/81
--- NOTE | 2020-09-25 17:22 | NUR ---
RN NOTE TUMS 1000MG PO ONCE PER CLIENT RELATIONSHIP MANAGER JAMES. NOTED AND CARRIED OUT.
[2020-09-25] MEDS ORDERED: CALCIUM CARBONATE 500 MG TAB.CHEW PO ONE (17:30)
--- NOTE | 2020-09-25 19:19 | NUR ---
RN NOTE THE PATIENT ALERT AND ORIENTED X4. DENIES PAIN. PATIENT IS IN ROOM AIR AND OXYGEN SATURATION IS AT 97%. DENIES SOB. RESPIRATION REGULAR AND UNLABORED. IV HEPARIN INFUSING PER ORDER AND NO S/S INFILTRATION NOTED. NO S/S BLEEDING NOTED. BED LOW AND LOCKED. SIDE RAILS UP X3. CALL LIGHT WITHIN REACH. WILL ENDORSE TO ASSEMBLER MOLDED FRAMES.
--- NOTE | 2020-09-25 19:30 | NUR ---
RECEIVED ALERT AND ORIENTATED X3 REQUIESTING TO CATH SELF GAVE HIM THE EQUIPMENT AND HE CATHED SELF 500 ML THUY COLORED UA
[2020-09-25 20:00] VITALS: BP_SYST 120; BP_SYST 97; BP_DIAS 56; BP_DIAS 67
[2020-09-26 01:33] VITALS: BP 133/76
[2020-09-26 04:00] VITALS: BP 127/65
[2020-09-26 04:16] VITALS: BP 127/65
[2020-09-26] MEDS: HEPARIN INFUSION/D5W 500 ML IV PRN (04:56)
--- NOTE | 2020-09-26 05:03 | NUR ---
ENDING NOTES: ALERT ORIENTATED X4 SELF CATHED X1 500 ML OBTAINED @ 19309/25 BOTH FEET WARM X ROBBINS THE PPP SITE RIGHT GROIN GAUZE DRESSING CLEAND AND DRY RIGHT WRIST SURGICAL SITE CLEAN AND DRY NO SEEN BRUISING NOTED WHEN TOUCHING HIS FEET HE JERKS AND PULLS HIS FEET AWAY DENIES PAIN
--- NOTE | 2020-09-26 07:30 | NUR ---
TELE/RN NOTE THE PATIENT IS RECEIVED IN BED. PATIENT IS ALERT AND ORIENTED X4. DENIES PAIN. IN ROOM AIR AND DENIES SOB. RESPIRATION REGULAR AND UNLABORED. BLE AND BUE PULSES PRESENT. TELE BOX READING IS SR 79. THE PATIENT IN STABLE CONDITION. RIGHT WRIST IV PATENT AND HEPARIN INFUSING PER ORDER AND NO S/S INFILTRATION NOTED. BED LOW AND LOCKED. SIDE RAILS UP X3. CALL LIGHT WITHIN REACH. WILL CONTINUE TO MONITOR.
[2020-09-26 08:08] VITALS: BP 130/83
[2020-09-26] MEDS ORDERED: BACLOFEN (10 MG) 10 MG TABLET PO SCH (09:00)
[2020-09-26] MEDS ORDERED: TIZANIDINE HCL 4 MG TABLET PO SCH (09:00)
[2020-09-26] MEDS ORDERED: METHOCARBAMOL (500MG) 500 MG TABLET PO SCH (09:00)
--- NOTE | 2020-09-26 10:20 | NUR ---
RN NOTE HEPARIN INFUSING STOPPER PER DR BERTRAND.
[2020-09-26] MEDS ORDERED: DAKINS QUARTER STRENGTH (0.125%) 480 ML BOTTLE TOP PRN ×2 (11:00)
--- NOTE | 2020-09-26 12:00 | NUR ---
RN CLOSING NOTE THE PATIENT IS PROVIDED WITH DISCHARGE EDUCATION AND HE VERBALIZED UNDERSTANDING. REMOVED IV AND MIN BLEEDING NOTED. COVERED THE SITE WITH FOLDED 2X2. DRESSING CHANGES DONE ON ALL HIS WOUND AND PICTURES TAKEN. PATIENT LEAVING THE HOSPITAL IN STABLE CONDITION.
--- NOTE | 2020-09-26 12:10 | NUR ---
RN NOTE PATIENT GOT PICKED UP BY FRIEND.
== END 2020-09-26 12:00 | disposition home or self-care (01) | DRG 253 ==
LOC: CATHLAB 07:25 → MED 11:46 → TELE 18:24
PROVIDERS: ADMIT Nurse Practitioner Acute Care; ATTEND Hospitalist
PROC: 047L3ZZ Dilation of Left Femoral Artery, Percutaneous Approach (ICD-10-PCS; principal; 2020-09-25)
PROC: B41DYZZ Fluoroscopy of Aorta and Bilateral Lower Extremity Arteries using Other Contrast (ICD-10-PCS; 2020-09-25)
DX: I70.244 Atherosclerosis of native arteries of left leg with ulceration of heel and midfoot (principal); G82.20 Paraplegia, unspecified; D68.59 Other primary thrombophilia; E44.0 Moderate protein-calorie malnutrition; L97.429 Non-pressure chronic ulcer of left heel and midfoot with unspecified severity; L97.919 Non-pressure chronic ulcer of unspecified part of right lower leg with unspecified severity; L89.609 Pressure ulcer of unspecified heel, unspecified stage; I70.239 Atherosclerosis of native arteries of right leg with ulceration of unspecified site
CPT/HCPCS: 36415; 75630-TC; 80053-TC; 85025-TC; 85610-TC; 85730-TC; A6253; A6403; C1725; C1769; C1887; C1894; G0378; J1200; J1644; J2250; J3010; J3490; Q9967

== ENCOUNTER 2020-10-02 10:25 | Outpatient (CLI) | payer BC ==
[~2020-10-02 10:25] MED LIST changes: +BACL20TA PO; -COLLAGENASE 5 GM TUBE UD TP ONE; +METH-647 PO; -SILVER SULFADIAZINE CREAM 25 GM TUBE ONE; +TIZA4TAB11 PO
== END 2020-10-02 23:59 | disposition home or self-care (01) ==
LOC: CT 10:25
PROVIDERS: ATTEND Surgery
DX: M16.0 Bilateral primary osteoarthritis of hip (principal); L98.499 Non-pressure chronic ulcer of skin of other sites with unspecified severity
CPT/HCPCS: 72192-TC

== ENCOUNTER 2020-10-05 14:15 | Outpatient (CLI) | payer BC ==
[2020-10-05] MEDS ORDERED: COLLAGENASE 5 GM TUBE UD TP ONE (14:33)
[2020-10-05] MEDS ORDERED: Z GUARD REMEDY 2 OZ OINT TP ONE (14:34)
== END 2020-10-05 23:59 | disposition home health service (06) ==
LOC: WOU 14:15
PROVIDERS: ATTEND Surgery
DX: L89.224 Pressure ulcer of left hip, stage 4 (principal); L89.214 Pressure ulcer of right hip, stage 4; L89.623 Pressure ulcer of left heel, stage 3; L89.613 Pressure ulcer of right heel, stage 3; F17.200 Nicotine dependence, unspecified, uncomplicated; F32.9 Major depressive disorder, single episode, unspecified; F41.9 Anxiety disorder, unspecified; K21.9 Gastro-esophageal reflux disease without esophagitis
CPT/HCPCS: 11043; 87070-TC; 87075-TC; 87186-TC

== ENCOUNTER 2020-10-12 14:30 | Outpatient (CLI) | payer BC | END 2020-10-12 23:59 | disposition home health service (06) | LOC: WOU 14:30 | PROVIDERS: ATTEND Surgery | DX: L89.224 Pressure ulcer of left hip, stage 4 (principal); L89.214 Pressure ulcer of right hip, stage 4; L89.623 Pressure ulcer of left heel, stage 3; L89.613 Pressure ulcer of right heel, stage 3; F17.200 Nicotine dependence, unspecified, uncomplicated; F32.9 Major depressive disorder, single episode, unspecified; F41.9 Anxiety disorder, unspecified; G82.20 Paraplegia, unspecified; K21.9 Gastro-esophageal reflux disease without esophagitis; Z79.899 Other long term (current) drug therapy | CPT/HCPCS: 11043 ==

== ENCOUNTER 2020-10-13 14:30 | Outpatient (CLI) | payer BC | END 2020-10-13 23:59 | disposition home or self-care (01) | LOC: WOU 14:30 | PROVIDERS: ATTEND Registered Nurse | DX: M86.9 Osteomyelitis, unspecified (principal); L89.224 Pressure ulcer of left hip, stage 4; L89.214 Pressure ulcer of right hip, stage 4; G82.20 Paraplegia, unspecified; F17.210 Nicotine dependence, cigarettes, uncomplicated | CPT/HCPCS: G0463 ==

== ENCOUNTER 2020-10-16 10:07 | Outpatient (CLI) | payer BC | END 2020-10-16 23:59 | disposition home or self-care (01) | LOC: WOU 10:07 | PROVIDERS: ATTEND Internal Medicine Infectious Disease | DX: Z45.2 Encounter for adjustment and management of vascular access device (principal); M86.8X8 Other osteomyelitis, other site; L89.224 Pressure ulcer of left hip, stage 4; L89.214 Pressure ulcer of right hip, stage 4 | CPT/HCPCS: 36569; C1751 ==

== ENCOUNTER 2020-10-16 10:52 | Outpatient (CLI) | payer BC | END 2020-10-16 23:59 | disposition home or self-care (01) | LOC: MSC 10:52 | PROVIDERS: ATTEND Internal Medicine | DX: Z09 Encounter for follow-up examination after completed treatment for conditions other than malignant neoplasm (principal); Z76.0 Encounter for issue of repeat prescription; G82.20 Paraplegia, unspecified; S71.002D Unspecified open wound, left hip, subsequent encounter; S71.001D Unspecified open wound, right hip, subsequent encounter; E88.09 Other disorders of plasma-protein metabolism, not elsewhere classified; E46 Unspecified protein-calorie malnutrition; F17.200 Nicotine dependence, unspecified, uncomplicated; Z71.89 Other specified counseling; F12.90 Cannabis use, unspecified, uncomplicated ==

== ENCOUNTER 2020-10-18 09:30 | Outpatient (CLI) | payer BC | END 2020-10-18 23:59 | disposition home or self-care (01) | LOC: WOU 09:30 | PROVIDERS: ATTEND Specialist | DX: M86.352 Chronic multifocal osteomyelitis, left femur (principal); M86.351 Chronic multifocal osteomyelitis, right femur; L89.224 Pressure ulcer of left hip, stage 4; L89.214 Pressure ulcer of right hip, stage 4; G82.21 Paraplegia, complete; L89.623 Pressure ulcer of left heel, stage 3; L89.613 Pressure ulcer of right heel, stage 3; F17.200 Nicotine dependence, unspecified, uncomplicated | CPT/HCPCS: G0463 ==

== ENCOUNTER 2020-10-19 14:15 | Outpatient (CLI) | payer BC | END 2020-10-19 23:59 | disposition home health service (06) | LOC: WOU 14:15 | PROVIDERS: ATTEND Surgery | DX: L89.224 Pressure ulcer of left hip, stage 4 (principal); L89.214 Pressure ulcer of right hip, stage 4; M86.352 Chronic multifocal osteomyelitis, left femur; M86.351 Chronic multifocal osteomyelitis, right femur; L89.623 Pressure ulcer of left heel, stage 3; L89.613 Pressure ulcer of right heel, stage 3; G82.21 Paraplegia, complete; F41.9 Anxiety disorder, unspecified; F32.9 Major depressive disorder, single episode, unspecified; K21.9 Gastro-esophageal reflux disease without esophagitis; F17.200 Nicotine dependence, unspecified, uncomplicated | CPT/HCPCS: 11043; 11044 ==